=== PATIENT | female | born 1950 | race Caucasian/White ===

== ENCOUNTER 2016-03-11 08:01 | Inpatient (IN) | payer OTHER ==
[2016-03-11] MEDS ORDERED: BABY ASPIRIN 81 MG CHEW PO ONE (08:04)
[2016-03-11] MEDS ORDERED: MORPHINE SULFATE 4 MG INJ IV ONE (08:04)
[2016-03-11] MEDS ORDERED: DUONEB 0.5-3 MG/3 ml Neb IH ONE ×2 (08:07)
[2016-03-11] MEDS ORDERED: Lasix 40 MG/4 ML IV ONE (08:13)
--- NOTE | 2016-03-11 08:13 | ERPHSYRPT ---
- History of Present Illness Time Seen by Provider: 03/11/16 08:09 Source: patient Physician History: This is a 65-year-old white female who denies significant past medical history arrives with complaint of bilateral chest pain which she cannot describe shortness of breath symptoms going on since 4 days ago patient arrives speaking with 1 or 2 word sentences. Past medical history patient denies Timing/Duration: day(s) (4 days) Severity: moderate Modifying Factors: Improves With: nothing Associated Symptoms: shortness of breath, chest pain (pain bilateral chest radiating down her sides for 4 days), No nausea, No vomiting, No abdominal pain , No heartburn, No diaphoresis, No cough, No chills, No fever, No headaches, No loss of appetite, No malaise, No rash, No syncope, No seizure, No weakness Allergies/Adverse Reactions: No Known Drug Allergies Allergy (Unverified 03/11/16 08:24) Home Medications: Amitriptyline HCl 10 mg [Elavil 10 mg] 10 mg PO TID 03/11/16 [History] - Review of Systems Constitutional: No Fever, No Chills Eyes: No Symptoms Ears, Nose, & Throat: No Symptoms Respiratory: Dyspnea, No Cough, No Cyanosis, No Dyspnea on Exertion (TERRELL), No Stridor, No Wheezing Cardiac: Chest Pain (pain bilateral chest radiating down her sides) Abdominal/Gastrointestinal: No Abdominal Pain, No Nausea, No Vomiting, No Diarrhea Musculoskeletal: No Back Pain, No Neck Pain Skin: No Rash Neurological: No Dizziness, No Focal Weakness, No Sensory Changes Psychological: No Symptoms Endocrine: No Symptoms All Other Systems: Reviewed and Negative - Past Medical History Pertinent Past Medical History: No - Past Surgical History Past Surgical History: No - Nursing Vital Signs Nursing Vital Signs: Initial Vital Signs Temperature 102.8 F Temperature Source Rectal Pulse Rate 120 Respiratory Rate 26 Blood Pressure [] 101/60 Pain Intensity 0 - Physical Exam General Appearance: moderate distress, other (well-developed well-nourished white female alert oriented 3) Eye Exam: PERRL/EOMI, eyes nml inspection Ears, Nose, Throat Exam: normal ENT inspection, TMs normal, pharynx normal, moist mucous membranes Neck Exam: normal inspection, non-tender, supple, full range of motion Respiratory Exam: respiratory distress (moderate respiratory distress), diminished breath sounds, crackles/rales, other (rales bilateral bases), No chest tenderness, No lungs clear Cardiovascular Exam: normal peripheral pulses, tachycardia, capillary refill <2 sec, No murmur, No friction rub, No gallop Gastrointestinal/Abdomen Exam: soft, normal bowel sounds, No tenderness, No mass Back Exam: normal inspection, normal range of motion, No CVA tenderness, No vertebral tenderness Extremity Exam: normal inspection, normal range of motion, pelvis stable Neurologic Exam: alert, oriented x 3, cooperative, normal mood/affect, nml cerebellar function, nml station & gait, sensation nml, No motor deficits Skin Exam: normal color, warm, dry, No rash Lymphatic Exam: No adenopathy SpO2 Interpretation: borderline oxygenation (90% 0n 3 lnp) - Course Nursing assessment & vital signs reviewed: Yes EKG Interpreted by Me: RATE (128 bpm), Sinus Tach, Other (ekg: sinus tacchycardia 128 bpm, axis SI/QIII pattern, q waves inferior leads, no acute st or t wve changes) - Radiology Exams Chest X-ray Interpretation: Discussed w/ radiologist, Other (left base infiltrate/ atelectasis / effusion ) Ordered Tests: Active Orders 24 hr Category Date Time Status Color Buffer STAT Care 03/11/16 08:04 Active EKG-ER Only STAT Care 03/11/16 08:04 Active IV Insertion STAT Care 03/11/16 08:04 Active Oxygen-ED Only NASAL CANNULA 3 lpm Care 03/11/16 08:04 Active Oxygen-ED Only NON-REBREATHER 100% Care 03/11/16 09:07 Active Oxygen-ED Only VENTI-MASK 50% Care 03/11/16 09:06 Active Pulse Oximetry (ED) STAT Care 03/11/16 08:04 Active CHEST 1 VIEW (PORTABLE) Stat Exams 03/11/16 08:05 Completed ARTERIAL BLOOD GASES Urgent Lab 03/11/16 08:07 Completed BLOOD CULTURE Stat Lab 03/11/16 08:40 Received CBC W DIFF Stat Lab 03/11/16 08:04 Completed CMP Stat Lab 03/11/16 08:04 Completed CULTURE,SPUTUM Stat Lab 03/11/16 08:29 Uncollected CULTURE,URINE Stat Lab 03/11/16 08:30 Ordered D-DIMER QUANTITATION Stat Lab 03/11/16 08:04 Completed Lactic Acid Urgent Lab 03/11/16 08:07 Completed Lactic Acid Urgent Lab 03/11/16 09:20 Completed Manual Differential NC Stat Lab 03/11/16 08:04 Completed NT PRO BNP Stat Lab 03/11/16 08:04 Completed PROTIME WITH INR Stat Lab 03/11/16 08:00 Completed PTT Stat Lab 03/11/16 08:00 Completed TROPONIN Q3H Lab 03/11/16 09:01 Completed TROPONIN Q3H Lab 03/11/16 11:15 Ordered TROPONIN Q3H Lab 03/11/16 14:15 Ordered TROPONIN Q3H Lab 03/11/16 17:15 Ordered TROPONIN Q3H Lab 03/11/16 20:15 Ordered UA Stat Lab 03/11/16 08:30 Ordered Respiratory Nebulizer STAT RT 03/11/16 08:07 Completed Transfer Order Routine Transfer 03/11/16 09:54 Ordered Medication Summary Generic Name Dose Route Start Last Admin Trade Name Freq PRN Reason Stop Dose Admin Sodium Chloride 1,000 mls @ 20 mls/hr 03/11/16 08:15 03/11/16 08:29 Sodium Chloride 0.9% 1000 Ml IV 04/10/16 08:14 20 mls/hr .Q24H ARIADNA Administration Discontinued Medications Generic Name Dose Route Start Last Admin Trade Name Freq PRN Reason Stop Dose Admin Acetaminophen 650 mg 03/11/16 08:31 03/11/16 08:46 Tylenol 325 Mg PO 03/11/16 08:32 650 mg STAT ONE Administration Acetaminophen Confirm 03/11/16 08:40 Tylenol 325 Mg Administered 03/11/16 08:41 Dose 650 mg .ROUTE .STK-MED ONE Albuterol/Ipratropium 3 ml 03/11/16 08:07 03/11/16 08:10 Duoneb 0.5-3 Mg/3 Ml Neb IH 03/11/16 08:08 3 ml STAT ONE Administration Albuterol/Ipratropium Confirm 03/11/16 08:07 Duoneb 0.5-3 Mg/3 Ml Neb Administered 03/11/16 08:08 Dose 3 ml IH .STK-MED ONE Aspirin 324 mg 03/11/16 08:04 03/11/16 08:28 Baby Aspirin 81 Mg Chew PO 03/11/16 08:05 324 mg STAT ONE Administration Aspirin Confirm 03/11/16 08:26 Baby Aspirin 81 Mg Chew Administered 03/11/16 08:27 Dose 324 mg .ROUTE .STK-MED ONE Enoxaparin Sodium 60 mg 03/11/16 09:50 03/11/16 10:01 Enoxaparin Sodium SQ 03/11/16 09:51 60 mg STAT ONE Administration Enoxaparin Sodium Confirm 03/11/16 10:00 Enoxaparin Sodium Administered 03/11/16 10:01 Dose 80 mg SQ .STK-MED ONE Furosemide 40 mg 03/11/16 08:13 03/11/16 08:29 Lasix 40 Mg/4 Ml IV 03/11/16 08:14 40 mg STAT ONE Administration Furosemide Confirm 03/11/16 08:27 Lasix 40 Mg/4 Ml Administered 03/11/16 08:28 Dose 40 mg .ROUTE .STK-MED ONE Sodium Chloride Confirm 03/11/16 08:27 Sodium Chloride 0.9% 1000 Ml Administered 03/11/16 08:28 Dose 1,000 mls @ ud .ROUTE .STK-MED ONE Ceftriaxone Sodium/Dextrose 50 mls @ 100 mls/hr 03/11/16 08:32 03/11/16 08:46 Rocephin 1 Gm-D5w 50 Ml Bag IV 03/11/16 09:01 100 mls/hr STAT ONE Administration Ceftriaxone Sodium/Dextrose Confirm 03/11/16 08:40 Rocephin 1 Gm-D5w 50 Ml Bag Administered 03/11/16 08:41 Dose 50 mls @ ud IV .STK-MED ONE Morphine Sulfate 4 mg 03/11/16 08:04 03/11/16 08:29 Morphine Sulfate 4 Mg Inj IV 03/11/16 08:05 4 mg STAT ONE Administration Morphine Sulfate Confirm 03/11/16 08:27 Morphine Sulfate 4 Mg Inj Administered 03/11/16 08:28 Dose 4 mg .ROUTE .STK-MED ONE Lab/Rad Data: Laboratory Result Diagrams 03/11/16 08:04 03/11/16 08:04 Laboratory Results 03/11/16 03/11/16 03/11/16 Range/Units 09:20 09:01 08:07 WBC (4.0-10.5) K/mm3 RBC (4.1-5.4) M/mm3 Hgb (12.0-16.0) gm/dl Hct (35-47) % MCV (78-100) fl MCH (26-32) pg MCHC (32-36) g/dl RDW (11.5-14.0) % Plt Count (150-450) K/mm3 MPV (6-9.5) fl Segmented Neutrophils (36.0-66.0) % Band Neutrophils (0.0-2.0) % Lymphocytes (Manual) (24-44) % Differential Comment Platelet Estimate (NORMAL) INR (0.8-3.0) PTT (25.3-37.0) SECONDS D-Dimer (0.00-0.49) mg/L Puncture Site RIGHT RADIAL pCO2 35 (35-45) mmHg pO2 58 L (75-100) mmHg Base Excess 4.3 H (-2.0-2.0) O2 Saturation 87.4 L (94-100) g/dF ABG pH 7.50 H (7.35-7.45) ABG HCO3 27.3 (22-28) ABG O2 Sat (Measured) 88.1 L (95-100) % Brendan Test YES A-a Gradient 126 a/A Ratio 0.32 Hemoglobin 14.8 Carboxyhemoglobin 0.8 (0.0-6.9) % THgb Methemoglobin 0.0 L (1.4-1.5) % Temperature 37.0 C POC O2 Flow Rate 32 % Sodium (136-145) mEq/L Potassium 4.2 (3.5-5.1) mEq/L Chloride (98-107) mEq/L Carbon Dioxide (21-32) mEq/L Anion Gap (5-15) MEQ/L BUN (9-20) mg/dL Creatinine (0.55-1.30) mg/dl Estimated GFR ML/MIN Glucose (70-110) MG/DL Lactic Acid 2.4 H 2.7 H (0.4-2.0) Calcium (8.5-10.1) mg/dL Total Bilirubin (0.2-1.0) mg/dL AST (15-37) U/L ALT (12-78) U/L Alkaline Phosphatase (46-116) U/L Troponin I < 0.017 (0.000-0.056) ng/ml NT-Pro-B Natriuret Pep (0-125) pg/ml Serum Total Protein (6.4-8.2) gm/dL Albumin (3.4-5.0) g/dL 03/11/16 03/11/16 03/11/16 Range/Units 08:04 08:04 08:04 WBC 22.8 H (4.0-10.5) K/mm3 RBC 5.07 (4.1-5.4) M/mm3 Hgb 14.8 (12.0-16.0) gm/dl Hct 46.6 (35-47) % MCV 91.9 (78-100) fl MCH 29.2 (26-32) pg MCHC 31.8 L (32-36) g/dl RDW 15.8 H (11.5-14.0) % Plt Count 171 (150-450) K/mm3 MPV 11.6 H (6-9.5) fl Segmented Neutrophils 67 H (36.0-66.0) % Band Neutrophils 22 H (0.0-2.0) % Lymphocytes (Manual) 11 L (24-44) % Differential Comment NORMAL Platelet Estimate NORMAL (NORMAL) INR (0.8-3.0) PTT (25.3-37.0) SECONDS D-Dimer 2.416 H* (0.00-0.49) mg/L Puncture Site pCO2 (35-45) mmHg pO2 (75-100) mmHg Base Excess (-2.0-2.0) O2 Saturation (94-100) g/dF ABG pH (7.35-7.45) ABG HCO3 (22-28) ABG O2 Sat (Measured) (95-100) % Brendan Test A-a Gradient a/A Ratio Hemoglobin Carboxyhemoglobin (0.0-6.9) % THgb Methemoglobin (1.4-1.5) % Temperature C POC O2 Flow Rate % Sodium 132 L (136-145) mEq/L Potassium 4.1 (3.5-5.1) mEq/L Chloride 94 L (98-107) mEq/L Carbon Dioxide 28.6 (21-32) mEq/L Anion Gap 13.8 (5-15) MEQ/L BUN 35 H (9-20) mg/dL Creatinine 1.25 (0.55-1.30) mg/dl Estimated GFR 46 ML/MIN Glucose 124 H (70-110) MG/DL Lactic Acid (0.4-2.0) Calcium 8.8 (8.5-10.1) mg/dL Total Bilirubin 0.7 (0.2-1.0) mg/dL AST 11 L (15-37) U/L ALT 10 L (12-78) U/L Alkaline Phosphatase 66 (46-116) U/L Troponin I (0.000-0.056) ng/ml NT-Pro-B Natriuret Pep 3661 H (0-125) pg/ml Serum Total Protein 8.5 H (6.4-8.2) gm/dL Albumin 2.5 L (3.4-5.0) g/dL 03/11/16 Range/Units 08:00 WBC (4.0-10.5) K/mm3 RBC (4.1-5.4) M/mm3 Hgb (12.0-16.0) gm/dl Hct (35-47) % MCV (78-100) fl MCH (26-32) pg MCHC (32-36) g/dl RDW (11.5-14.0) % Plt Count (150-450) K/mm3 MPV (6-9.5) fl Segmented Neutrophils (36.0-66.0) % Band Neutrophils (0.0-2.0) % Lymphocytes (Manual) (24-44) % Differential Comment Platelet Estimate (NORMAL) INR 1.59 (0.8-3.0) PTT 34.7 (25.3-37.0) SECONDS D-Dimer (0.00-0.49) mg/L Puncture Site pCO2 (35-45) mmHg pO2 (75-100) mmHg Base Excess (-2.0-2.0) O2 Saturation (94-100) g/dF ABG pH (7.35-7.45) ABG HCO3 (22-28) ABG O2 Sat (Measured) (95-100) % Brendan Test A-a Gradient a/A Ratio Hemoglobin Carboxyhemoglobin (0.0-6.9) % THgb Methemoglobin (1.4-1.5) % Temperature C POC O2 Flow Rate % Sodium (136-145) mEq/L Potassium (3.5-5.1) mEq/L Chloride (98-107) mEq/L Carbon Dioxide (21-32) mEq/L Anion Gap (5-15) MEQ/L BUN (9-20) mg/dL Creatinine (0.55-1.30) mg/dl Estimated GFR ML/MIN Glucose (70-110) MG/DL Lactic Acid (0.4-2.0) Calcium (8.5-10.1) mg/dL Total Bilirubin (0.2-1.0) mg/dL AST (15-37) U/L ALT (12-78) U/L Alkaline Phosphatase (46-116) U/L Troponin I (0.000-0.056) ng/ml NT-Pro-B Natriuret Pep (0-125) pg/ml Serum Total Protein (6.4-8.2) gm/dL Albumin (3.4-5.0) g/dL - Progress Progress: improved Progress Note: 03/11/16 09:44 This is a 65-year-old white female who arrives tachycardic with bilateral chest pain with shortness of breath symptoms going on for 4 days. Patient with her oxygenation of 89% on room air. Patient with a chest x-ray remarkable for a left sided atelectasis/infiltrate/ effusion. Patient with a BNP of 3661 with rales in the bases. Patient also with a d-dimer of 2.416. Patient's white count is 22.8 hemoglobin 14.8 hematocrit 46.6. Patient's lactic acid was 2.8 on arrival now 2.4. Patient was given Lasix 40 mg IV DuoNeb treatment, aspirin, and oxygen. IV normal saline was started at to keep open rate patient clinically appeared to have congestive heart failure. Blood cultures, urine cultures, sputum were ordered blood cultures and sputum have been obtained. Patient was given Rocephin 1 g IV as well as Tylenol and aspirin patient is feeling better. Case is discussed with Dr. Prakash will continue current rate of IV normal saline secondary to patient's clinical presentation consistent with congestive heart failure. Will continue IV antibiotics. Will continue DuoNeb and oxygen. Will begin Lovenox. Will place patient on ICU Diagnosis pneumonia, congestive heart failure, increased d-dimer - Departure Time of Disposition: 10:15 Departure Disposition: Observation Clinical Impression: SOB (shortness of breath), increased ddimer Pneumonia Qualifiers: Pneumonia type: due to unspecified organism Laterality: left Lung location: lower lobe of lung Qualified Code(s): J18.1 - Lobar pneumonia, unspecified organism CHF (congestive heart failure) Qualifiers: Congestive heart failure type: unspecified congestive heart failure type Congestive heart failure chronicity: unspecified congestive heart failure chronicity Qualified Code(s): I50.9 - Heart failure, unspecified Condition: Fair Critical Care Time: No Instructions: Heart Failure
[2016-03-11] MEDS ORDERED: Sodium Chloride 0.9% 1000 ML 1,000 ML IV SCH (08:15)
[2016-03-11 08:20] LABS: A-aADO2 126; ARTERIAL BLD GAS O2 SATURATION 88.1 % (95-100); ARTERIAL BLOOD GAS BASE EXCESS 4.3 (-2.0-2.0); ARTERIAL BLOOD GAS FIO2 32 %; ARTERIAL BLOOD GAS PO2 58 mmHg (75-100); Lactic Acid 2.7 (0.4-2.0)
[2016-03-11 08:21] LABS: ALLEN TEST OK? YES
[2016-03-11] MEDS ORDERED: BABY ASPIRIN 81 MG CHEW ONE (08:26)
[2016-03-11] MEDS ORDERED: Sodium Chloride 0.9% 1000 ML 1,000 ML ONE (08:27)
[2016-03-11] MEDS ORDERED: MORPHINE SULFATE 4 MG INJ ONE (08:27)
[2016-03-11] MEDS ORDERED: Lasix 40 MG/4 ML ONE (08:27)
[2016-03-11 08:31] LABS: Mean Cell Volume 91.9 fl (78-100); Mean Corpuscular Hemoglobin 29.2 pg (26-32); Mean Platelet Volume 11.6 fl (6-9.5); Platelet Count 171 K/mm3 (150-450); Red Blood Count 5.07 M/mm3 (4.1-5.4); Red Cell Distribution Width 15.8 % (11.5-14.0); White Blood Count 22.8 K/mm3 (4.0-10.5)
[2016-03-11] MEDS ORDERED: TYLENOL 325 MG PO ONE (08:31)
[2016-03-11] MEDS ORDERED: ROCEPHIN 1 Gm-D5w 50 ml Bag** 50 ML IV ONE ×2 (08:32→08:40)
--- NOTE | 2016-03-11 08:38 | XRAY ---
Indication: Cough. Comparison: July 22, 2012 Portable chest slightly degraded by respiration artifact with new left base infiltrate/atelectasis/effusion. Remaining right lung, heart, and bony thorax are unremarkable.
[2016-03-11] MEDS ORDERED: TYLENOL 325 MG ONE (08:40)
[2016-03-11 08:53] LABS: BAND 22 % (0.0-2.0); Total Cells Counted 100
[2016-03-11 08:54] LABS: Platelet Estimate NORMAL (NORMAL)
[2016-03-11 08:59] LABS: ALBUMIN 2.5 g/dL (3.4-5.0); ANION GAP 13.8 MEQ/L (5-15); BILIRUBIN,TOTAL 0.7 mg/dL (0.2-1.0); Carbon Dioxide 28.6 mEq/L (21-32); Potassium 4.1 mEq/L (3.5-5.1); Total Protein 8.5 gm/dL (6.4-8.2)
[2016-03-11 09:44] LABS: INR 1.59 (0.8-3.0); PROTIME 17.6 SECONDS (9.95-12.35); PTT 34.7 SECONDS (25.3-37.0)
[2016-03-11] MEDS ORDERED: ENOXAPARIN SODIUM SQ ONE ×2 (09:50→10:00)
[2016-03-11] MEDS ORDERED: DUONEB 0.5-3 MG/3 ml Neb IH PRN (11:36)
--- NOTE | 2016-03-11 13:08 | XRAY ---
Indication: Short of breath and right chest pain. Multiple contiguous axial images obtained through the chest using 100 cc Isovue 370 contrast and PE protocol. Comparison: None There is suboptimal opacification of the pulmonary arteries for unknown reason. I question nonoccluding pulmonary embolus in the posterior right upper lobe, lateral right middle lobe, and anterior right lower lobe segmental branches. No other filling defect or pulmonary embolus. Heart is not enlarged. Aorta is normal in course and caliber. A few mediastinal calcified nodes. No pathologic mediastinal/hilar lymphadenopathy. Examination of the lung parenchyma demonstrates near complete left lower lobe consolidation with small left effusion. Mild right base dependent atelectasis. Remaining lungs demonstrates moderate emphysema. Right middle lobe calcified granuloma. Bony thorax intact with old right third rib fracture. Limited upper abdomen demonstrates 2.8 cm hepatic cyst. Impression: 1. Suboptimal opacification of the pulmonary arteries. Query right upper, right middle, and right lower lobe nonoccluding segmental pulmonary emboli without distal infarct. 2. Left lower lobe near complete consolidating airspace disease with small effusion. 3. Pulmonary emphysema and evidence for old granulomatous disease. 4. Hepatic cyst. CT DI 16.67
[2016-03-11] MEDS: Vasotec 5 MG PO SCH (13:13)
[2016-03-11] MEDS: Zithromax 500 MG/ 250 ML NaCl Premix 250 ML IV SCH (13:27)
[2016-03-11] MEDS: SODIUM CHLORIDE 0.45% W/ 20 mEq KCL 1,000 ML IV SCH (14:56)
[2016-03-11 15:07] LABS: Bacteria FEW /HPF (NEGATIVE); COMPLETE URINE MICROSCOPIC? YES; Collection Type VOID; Epithelial Cells RARE /HPF (FEW); Ph 5.5 (5-6); WBC 0-2 /HPF (0-5)
[2016-03-11] MEDS ORDERED: Lasix 40 MG PO SCH (17:00)
[2016-03-11] MEDS ORDERED: MORPHINE SULFATE 4 MG INJ IV PRN (17:02)
--- NOTE | 2016-03-11 17:02 | PCM.HP ---
History of Present Illness - Chief Complaint Chief Complaint: LLL Pneumonia; CHF; Elevated D-Dimer History of Present Illness: is a 65 year old female who reports a cough for the last month, recently became productive of yellow sputum. She became acutely short of breath yesterday and spent the day in bed. no history of cad, no blood clots in the past. no known fever at home. no vomiting or diarrhea, no rash. she has pain in the left rib area with cough or deep inspiration - Review of Systems Constitutional: Weakness Respiratory: Cough, Short Of Breath Cardiac: Chest Pain Abdominal/Gastrointestinal: No Abdominal Pain, No Nausea, No Vomiting, No Diarrhea Skin: No Rash All Other Systems: Reviewed and Negative Medications & Allergies Home Medications: Home Medication List Amitriptyline HCl 3 tab PO HS 03/11/16 [History Confirmed 03/11/16] Allergies/Adverse Reactions: Allergies Allergy/AdvReac Type Severity Reaction Status Date / Time No Known Drug Allergies Allergy Unverified 03/11/16 08:24 - Past Medical History Past Medical History: Yes Neurological History: Other ENT History: Cataracts Cardiac History: No Pertinent History Respiratory History: Bronchitis, CHF, COPD, Pneumonia Endocrine Medical History: No Pertinent History Musculoskelatal History: No Pertinent History GI Medical History: Hemorrhoids History: No Pertinent History Pyscho-Social History: No Pertinent History Reproductive Disorders: Breast Cancer Comment: Persistent headaches - Female History Are you now?: No - Past Surgical History Past Surgical History: Yes Neuro Surgical History: No Pertinent History Cardiac History: No Pertinent History Respiratory Surgery: No Pertinent History GI Surgical History: No Pertinent History Genitourinary Surgical Hx: No Pertinent History Musculskeletal Surgical Hx: No Pertinent History Female Surgical History: Tubal Ligation, Mastectomy Other Surgical History: RIGHT mastectomy - Social History Smoking Status: Current every day smoker How long have you smoked: YRS Exposure to second hand smoke: Yes Alcohol: None Drug Use: none - Physical Exam Vital Signs: Vital Signs - 24 hr Temp Pulse Resp BP Pulse Ox 03/11/16 15:44 98.3 F 117 H 26 H 113/79 93 L 03/11/16 13:33 98.1 F 108 H 26 H 93/58 91 L 03/11/16 13:10 98.1 F 108 H 20 102/61 91 L 03/11/16 12:49 106 H 20 94 L 03/11/16 10:09 120 H 26 H 101/60 95 03/11/16 09:22 125 H 20 94/57 94 L 03/11/16 08:50 130 H 44 H 109/66 84 L 03/11/16 08:45 124 H 28 H 83 L 03/11/16 08:29 102.8 F 03/11/16 08:20 98.9 F 131 H 30 H 109/63 91 L 03/11/16 08:16 33 H 83 L Oxygen-Last 24 hours O2 Percentage 3 Liters = 32% O2 Percentage 3 Liters = 32% O2 Percentage 2 Liters = 28% O2 Percentage 5 Liters = 40% O2 Percentage 50% O2 Percentage 3 Liters = 32% O2 Percentage 100% O2 Percentage 3 Liters = 32% O2 Percentage 3 Liters = 32% General Appearance: no apparent distress Neurologic Exam: alert Respiratory Exam: crackles/rales (left lung base) Cardiovascular Exam: regular rate/rhythm, normal heart sounds, normal peripheral pulses, tachycardia Gastrointestinal/Abdomen Exam: soft, normal bowel sounds, No tenderness, No mass Extremity Exam: normal inspection, normal range of motion, pelvis stable Skin Exam: normal color, warm, dry, No rash Assessment/Plan (1) Pulmonary embolism Current Visit: Yes Status: Acute Assessment & Plan: started on lovenox, report is somewhat nonconclusive but history of acute onset of dypsnea and pleuritic pain etc supports enough to treat with lovenox at this time. will likely want to repeat to get a more accurate study once the pneumonia is resolved or improved clinically Code(s): I26.99 - OTHER PULMONARY EMBOLISM WITHOUT ACUTE COR PULMONALE (2) Pneumonia Current Visit: Yes Status: Acute Qualifiers: Pneumonia type: due to unspecified organism Laterality: left Lung location: lower lobe of lung Qualified Code(s): J18.1 - Lobar pneumonia, unspecified organism Assessment & Plan: on rocephin and zithromax, IV fluids Code(s): J18.9 - PNEUMONIA, UNSPECIFIED ORGANISM
[2016-03-11] MEDS ORDERED: Ambien 5 MG Tablet PO PRN (20:37)
[2016-03-11] MEDS: ENOXAPARIN SODIUM SQ SCH (21:24)
[2016-03-12] MEDS: SODIUM CHLORIDE 0.45% W/ 20 mEq KCL 1,000 ML IV SCH ×2 (05:28→21:38)
[2016-03-12 05:34] LABS: Mean Cell Volume 93.6 fl (78-100); Mean Platelet Volume 11.4 fl (6-9.5); Platelet Count 149 K/mm3 (150-450); Red Blood Count 4.08 M/mm3 (4.1-5.4); Red Cell Distribution Width 15.4 % (11.5-14.0); White Blood Count 15.6 K/mm3 (4.0-10.5)
[2016-03-12 05:37] LABS: Mean Corpuscular Hemoglobin 29.6 pg (26-32)
[2016-03-12 06:22] LABS: BAND 9 % (0.0-2.0); Total Cells Counted 100
[2016-03-12 06:24] LABS: ANISOCYTOSIS 1+; Platelet Estimate NORMAL (NORMAL); Poikilocytosis 1+; Polychromasia 1+
--- NOTE | 2016-03-12 08:16 | PCM.NOTE ---
Date and Time: 03/12/16814 Subjective Assessment: Pt's breathing is better than on admission. she is vivian liquids. coughing is productive. Objective Exam General Appearance: no apparent distress Neurologic Exam: alert, oriented x 3, cooperative Skin Exam: normal color, warm, dry Respiratory Exam: diminished breath sounds, rhonchi (scattered throughout), No wheezing Cardiovascular Exam: regular rate/rhythm, normal heart sounds OBJECTIVE DATA Vital Signs: Vital Signs - 24 hr Temp Pulse Resp BP Pulse Ox 03/12/16 04:00 98.5 F 103 H 20 93 L 03/12/16 00:01 112 H 03/12/16 00:00 97.7 F 112 H 20 102/66 94 L 03/11/16 20:00 99.5 F 114 H 22 137/74 98 03/11/16 19:35 115 H 22 93 L 03/11/16 16:00 117 H 25 H 03/11/16 15:44 98.3 F 117 H 26 H 113/79 93 L 03/11/16 13:33 98.1 F 108 H 26 H 93/58 91 L 03/11/16 13:10 98.1 F 108 H 20 102/61 91 L 03/11/16 12:49 106 H 20 94 L 03/11/16 10:09 120 H 26 H 101/60 95 03/11/16 09:22 125 H 20 94/57 94 L 03/11/16 08:50 130 H 44 H 109/66 84 L 03/11/16 08:45 124 H 28 H 83 L 03/11/16 08:29 102.8 F 03/11/16 08:20 98.9 F 131 H 30 H 109/63 91 L 03/11/16 08:16 33 H 83 L Oxygen-Last 24 hours O2 Percentage 3 Liters = 32% O2 Percentage 3 Liters = 32% O2 Percentage 3 Liters = 32% O2 Percentage 3 Liters = 32% O2 Percentage 2 Liters = 28% O2 Percentage 5 Liters = 40% O2 Percentage 50% O2 Percentage 3 Liters = 32% O2 Percentage 100% O2 Percentage 3 Liters = 32% O2 Percentage 3 Liters = 32% Pain Assessment - Last Documented Pain Intensity 0 Pain Scale Used 0-10 Pain Scale Intake and Output: Intake & Output 03/09/16 03/10/16 03/11/16 03/12/16 11:59 11:59 11:59 11:59 Intake Total 2073 Output Total 1550 Balance 523 Weight 66.497 kg Lab Results: Lab Results-Last 24 Hours 03/11/16 03/11/16 03/12/16 Range/Units 17:20 20:16 05:10 WBC (4.0-10.5) K/mm3 RBC (4.1-5.4) M/mm3 Hgb (12.0-16.0) gm/dl Hct (35-47) % MCV (78-100) fl MCH (26-32) pg MCHC (32-36) g/dl RDW (11.5-14.0) % Plt Count (150-450) K/mm3 MPV (6-9.5) fl Segmented Neutrophils (36.0-66.0) % Band Neutrophils (0.0-2.0) % Lymphocytes (Manual) (24-44) % Monocytes (Manual) (0.0-12.0) % Platelet Estimate (NORMAL) Polychromasia Poikilocytosis Anisocytosis Lactic Acid (0.4-2.0) Troponin I < 0.017 < 0.017 (0.000-0.056) ng/ml NT-Pro-B Natriuret Pep 809 H (0-125) pg/ml 03/12/16 03/12/16 Range/Units 05:10 05:13 WBC 15.6 H (4.0-10.5) K/mm3 RBC 4.08 L (4.1-5.4) M/mm3 Hgb 12.1 (12.0-16.0) gm/dl Hct 38.2 (35-47) % MCV 93.6 (78-100) fl MCH 29.6 (26-32) pg MCHC 31.7 L (32-36) g/dl RDW 15.4 H (11.5-14.0) % Plt Count 149 L (150-450) K/mm3 MPV 11.4 H (6-9.5) fl Segmented Neutrophils 86 H (36.0-66.0) % Band Neutrophils 9 H (0.0-2.0) % Lymphocytes (Manual) 2 L (24-44) % Monocytes (Manual) 3 (0.0-12.0) % Platelet Estimate NORMAL (NORMAL) Polychromasia 1+ Poikilocytosis 1+ Anisocytosis 1+ Lactic Acid 0.8 (0.4-2.0) Troponin I (0.000-0.056) ng/ml NT-Pro-B Natriuret Pep (0-125) pg/ml Assessment/Plan (1) Pulmonary embolism Current Visit: Yes Status: Acute Assessment & Plan: On lovenox 60mg SQ BID. Code(s): I26.99 - OTHER PULMONARY EMBOLISM WITHOUT ACUTE COR PULMONALE (2) Pneumonia Current Visit: Yes Status: Acute Qualifiers: Pneumonia type: due to unspecified organism Laterality: left Lung location: lower lobe of lung Qualified Code(s): J18.1 - Lobar pneumonia, unspecified organism Assessment & Plan: Clinically some improvement, continue IV rocephin and zitrhomax. Code(s): J18.9 - PNEUMONIA, UNSPECIFIED ORGANISM
--- NOTE | 2016-03-12 09:04 | XRAY ---
Indication: CHF. Comparison: One day earlier. Portable chest unchanged again with left base infiltrate/atelectasis/effusion and a few scattered calcified granulomas. Remaining lungs and heart unremarkable. No new abnormalities.
[2016-03-12] MEDS: ENOXAPARIN SODIUM SQ SCH ×2 (10:09→21:02)
[2016-03-12] MEDS: ROCEPHIN 1 Gm-D5w 50 ml Bag** 50 ML IV SCH (10:10)
[2016-03-12] MEDS: Vasotec 5 MG PO SCH (10:10)
[2016-03-12] MEDS: Zithromax 500 MG/ 250 ML NaCl Premix 250 ML IV SCH (10:10)
--- NOTE | 2016-03-12 11:51 | ECHO ---
Transthoracic echocardiographic examination and color Doppler was done on 03/11/2016. INDICATION: Shortness of breath, congestive heart failure. IMPRESSION: 1) NO DEFINITE REGIONAL WALL MOTION ABNORMALITY. ESTIMATED GLOBAL LEFT VENTRICULAR EJECTION FRACTION AROUND 50 TO 60%. 2) TRACE MITRAL REGURGITATION. 3) LEFT VENTRICULAR HYPERTROPHY. 4) LEFT VENTRICULAR DIASTOLIC DYSFUNCTION. The left ventricle is visualized but demonstrated adequate contractility. Estimated global left ventricular ejection fraction around 50 to 60%. There is mild left ventricular hypertrophy. The mitral valve is seen and this opens adequately. There is trace mitral regurgitation. Left atrium is normal. The tissue Doppler study over the lateral mitral annulus suggests left ventricular diastolic dysfunction. The aortic valve opens adequately. Right side chambers are within normal. No significant tricuspid regurgitation is seen.
[2016-03-13 06:30] LABS: ALBUMIN 1.8 g/dL (3.4-5.0); ALKALINE PHOSPHATASE 92 U/L (46-116); ANION GAP 10.6 MEQ/L (5-15); BILIRUBIN,TOTAL 0.2 mg/dL (0.2-1.0); BLOOD UREA NITROGEN 26 mg/dL (9-20); CHLORIDE 102 mEq/L (98-107); Carbon Dioxide 26.9 mEq/L (21-32); Glucose 96 MG/DL (70-110); Potassium 3.8 mEq/L (3.5-5.1); SGOT/AST 17 U/L (15-37); SGPT/ALT 14 U/L (12-78); SODIUM 136 mEq/L (136-145); Total Protein 7.1 gm/dL (6.4-8.2)
--- NOTE | 2016-03-13 09:27 | PCM.NOTE ---
Date and Time: 03/13/1625 Subjective Assessment: patient is feeling better, coughing up sputum but less short of breath with exertion and overall feeling better. Objective Exam General Appearance: no apparent distress, alert Respiratory Exam: crackles/rales (left lung base) Cardiovascular Exam: regular rate/rhythm, normal heart sounds Gastrointestinal/Abdomen Exam: soft, No tenderness, No mass Extremity Exam: normal inspection, normal range of motion OBJECTIVE DATA Vital Signs: Vital Signs - 24 hr Temp Pulse Resp BP Pulse Ox 03/13/16 04:00 98.7 F 94 H 20 96/44 96 03/13/16 00:01 91 H 03/13/16 00:00 98.7 F 91 H 19 96/42 95 03/12/16 21:39 94 H 23 95 03/12/16 20:00 98.7 F 94 H 24 105/62 96 03/12/16 16:00 98.1 F 98 H 18 121/67 95 03/12/16 12:00 98.2 F 104 H 18 108/68 93 L Oxygen-Last 24 hours O2 Percentage 6 Liters = 44% O2 Percentage 5 Liters = 40% O2 Percentage 5 Liters = 40% O2 Percentage 5 Liters = 40% O2 Percentage 3 Liters = 32% Pain Assessment - Last Documented Pain Intensity 2 Pain Scale Used 0-10 Pain Scale Intake and Output: Intake & Output 03/10/16 03/11/16 03/12/16 03/13/16 11:59 11:59 11:59 11:59 Intake Total 2073 3287 Output Total 1550 1600 Balance 523 1687 Weight 66.497 kg 68.13 kg Lab Results: Lab Results-Last 24 Hours 03/13/16 Range/Units 05:35 Sodium 136 (136-145) mEq/L Potassium 3.8 (3.5-5.1) mEq/L Chloride 102 (98-107) mEq/L Carbon Dioxide 26.9 (21-32) mEq/L Anion Gap 10.6 (5-15) MEQ/L BUN 26 H (9-20) mg/dL Creatinine 0.86 (0.55-1.30) mg/dl Estimated GFR > 60 ML/MIN Glucose 96 (70-110) MG/DL Calcium 7.8 L (8.5-10.1) mg/dL Total Bilirubin 0.2 (0.2-1.0) mg/dL AST 17 (15-37) U/L ALT 14 (12-78) U/L Alkaline Phosphatase 92 (46-116) U/L Serum Total Protein 7.1 (6.4-8.2) gm/dL Albumin 1.8 L (3.4-5.0) g/dL Assessment/Plan (1) Pulmonary embolism Current Visit: Yes Status: Acute Assessment & Plan: continue lovenox Code(s): I26.99 - OTHER PULMONARY EMBOLISM WITHOUT ACUTE COR PULMONALE (2) Pneumonia Current Visit: Yes Status: Acute Qualifiers: Pneumonia type: due to unspecified organism Laterality: left Lung location: lower lobe of lung Qualified Code(s): J18.1 - Lobar pneumonia, unspecified organism Assessment & Plan: patient is improving, continue current management. of note initially pro bnp elevated and improved in spite of gentle hydration Code(s): J18.9 - PNEUMONIA, UNSPECIFIED ORGANISM
[2016-03-13] MEDS: ENOXAPARIN SODIUM SQ SCH ×2 (10:31→21:57)
[2016-03-13] MEDS: Vasotec 5 MG PO SCH (10:31)
[2016-03-13] MEDS: ROCEPHIN 1 Gm-D5w 50 ml Bag** 50 ML IV SCH (10:32)
[2016-03-13] MEDS: SODIUM CHLORIDE 0.45% W/ 20 mEq KCL 1,000 ML IV SCH (10:35)
[2016-03-13] MEDS: Zithromax 500 MG/ 250 ML NaCl Premix 250 ML IV SCH (10:36)
[2016-03-14 05:56] LABS: Mean Cell Volume 94.9 fl (78-100); Mean Corpuscular Hemoglobin 28.8 pg (26-32); Mean Platelet Volume 10.9 fl (6-9.5); Platelet Count 189 K/mm3 (150-450); Red Blood Count 3.92 M/mm3 (4.1-5.4); Red Cell Distribution Width 15.3 % (11.5-14.0); White Blood Count 7.9 K/mm3 (4.0-10.5)
[2016-03-14 06:34] LABS: ALBUMIN 1.8 g/dL (3.4-5.0); ALKALINE PHOSPHATASE 126 U/L (46-116); ANION GAP 10.8 MEQ/L (5-15); BILIRUBIN,TOTAL 0.4 mg/dL (0.2-1.0); BLOOD UREA NITROGEN 15 mg/dL (9-20); CHLORIDE 104 mEq/L (98-107); Carbon Dioxide 25.4 mEq/L (21-32); Glucose 100 MG/DL (70-110); Potassium 4.1 mEq/L (3.5-5.1); SGOT/AST 30 U/L (15-37); SGPT/ALT 28 U/L (12-78); SODIUM 136 mEq/L (136-145); Total Protein 7.5 gm/dL (6.4-8.2)
[2016-03-14 07:20] LABS: BAND 1 % (0.0-2.0); Total Cells Counted 100
--- NOTE | 2016-03-14 08:08 | PCM.NOTE ---
Date and Time: 03/14/16805 Subjective Assessment: patient reports she is feeling better today, oxygen requirements have decreased. she is still coughing up a fair amount of sputum Objective Exam General Appearance: no apparent distress, alert Respiratory Exam: crackles/rales Cardiovascular Exam: regular rate/rhythm, normal heart sounds Gastrointestinal/Abdomen Exam: soft, No tenderness, No mass Extremity Exam: normal inspection, normal range of motion OBJECTIVE DATA Vital Signs: Vital Signs - 24 hr Temp Pulse Resp BP Pulse Ox 03/14/16 07:59 98.0 F 88 18 135/68 97 03/14/16 07:37 89 22 94 L 03/14/16 06:00 24 03/14/16 04:00 98.8 F 90 24 140/76 93 L 03/14/16 02:00 20 03/14/16 00:00 98.2 F 93 H 20 159/71 92 L 03/13/16 23:59 95 H 92 L 03/13/16 22:00 22 03/13/16 20:00 98.4 F 95 H 22 149/84 91 L 03/13/16 16:00 98.9 F 98 H 20 129/73 93 L 03/13/16 13:50 93 L 03/13/16 13:39 96 H 20 95 03/13/16 11:57 98.5 F 95 H 22 111/57 90 L Oxygen-Last 24 hours O2 Percentage 5 Liters = 40% O2 Percentage 5 Liters = 40% O2 Percentage 3 Liters = 32% O2 Percentage 5 Liters = 40% O2 Percentage 5 Liters = 40% Pain Assessment - Last Documented Pain Intensity 2 Pain Scale Used 0-10 Pain Scale Intake and Output: Intake & Output 03/11/16 03/12/16 03/13/16 03/14/16 11:59 11:59 11:59 11:59 Intake Total 2073 3287 1635 Output Total 1550 2600 Balance 005 296 2402 Weight 66.497 kg 68.13 kg 67.993 kg Lab Results: Lab Results-Last 24 Hours 03/14/16 03/14/16 Range/Units 05:21 05:21 WBC 7.9 (4.0-10.5) K/mm3 RBC 3.92 L (4.1-5.4) M/mm3 Hgb 11.3 L (12.0-16.0) gm/dl Hct 37.2 (35-47) % MCV 94.9 (78-100) fl MCH 28.8 (26-32) pg MCHC 30.4 L (32-36) g/dl RDW 15.3 H (11.5-14.0) % Plt Count 189 (150-450) K/mm3 MPV 10.9 H (6-9.5) fl Segmented Neutrophils 65 (36.0-66.0) % Band Neutrophils 1 (0.0-2.0) % Lymphocytes (Manual) 32 (24-44) % Monocytes (Manual) 2 (0.0-12.0) % Differential Comment NORMAL Sodium 136 (136-145) mEq/L Potassium 4.1 (3.5-5.1) mEq/L Chloride 104 (98-107) mEq/L Carbon Dioxide 25.4 (21-32) mEq/L Anion Gap 10.8 (5-15) MEQ/L BUN 15 (9-20) mg/dL Creatinine 0.71 (0.55-1.30) mg/dl Estimated GFR > 60 ML/MIN Glucose 100 (70-110) MG/DL Calcium 8.1 L (8.5-10.1) mg/dL Total Bilirubin 0.4 (0.2-1.0) mg/dL AST 30 (15-37) U/L ALT 28 (12-78) U/L Alkaline Phosphatase 126 H (46-116) U/L NT-Pro-B Natriuret Pep 731 H (0-125) pg/ml Serum Total Protein 7.5 (6.4-8.2) gm/dL Albumin 1.8 L (3.4-5.0) g/dL Multi-Disciplinary Progress Notes: Multi-Disciplinary Progress Notes 03/14/16 00:06 Respiratory Note by Kameron Pedraza PT SATS WERE 85% ON 3LPM NC. I TURNED O2 UP TO 5LPM AND PT SATS WERE 88%. PLACED AN OXYMASK AT 5LPM AND THAT MAINTAINED A SAT OF 95% SO I WILL LEAVE HER ON THAT FOR THE NIGHT. Initialized on 03/14/16 00:06 - END OF NOTE Assessment/Plan (1) Pulmonary embolism Current Visit: Yes Status: Acute Assessment & Plan: continue lovenox, plan to repeat CTA prior to discharge, secondary to ambiguous read on initial study before committing to anticoagulation Code(s): I26.99 - OTHER PULMONARY EMBOLISM WITHOUT ACUTE COR PULMONALE (2) Pneumonia Current Visit: Yes Status: Acute Qualifiers: Pneumonia type: due to unspecified organism Laterality: left Lung location: lower lobe of lung Qualified Code(s): J18.1 - Lobar pneumonia, unspecified organism Assessment & Plan: continue current management Code(s): J18.9 - PNEUMONIA, UNSPECIFIED ORGANISM
[2016-03-14] MEDS: ROCEPHIN 1 Gm-D5w 50 ml Bag** 50 ML IV SCH (09:22)
[2016-03-14] MEDS: Vasotec 5 MG PO SCH (09:22)
[2016-03-14] MEDS: Zithromax 500 MG/ 250 ML NaCl Premix 250 ML IV SCH (09:22)
[2016-03-14] MEDS: ENOXAPARIN SODIUM SQ SCH ×2 (09:22→21:15)
[2016-03-14] MEDS: SODIUM CHLORIDE 0.45% W/ 20 mEq KCL 1,000 ML IV SCH (09:32)
[2016-03-15] MEDS: SODIUM CHLORIDE 0.45% W/ 20 mEq KCL 1,000 ML IV SCH ×2 (05:07→22:39)
--- NOTE | 2016-03-15 08:15 | PCM.NOTE ---
Date and Time: 03/15/16812 Subjective Assessment: patient is feeling much better today, grew strep pneumoniae on sputum culture. Objective Exam General Appearance: no apparent distress, alert Respiratory Exam: crackles/rales Cardiovascular Exam: regular rate/rhythm, normal heart sounds Gastrointestinal/Abdomen Exam: soft, No tenderness, No mass Extremity Exam: normal inspection, normal range of motion OBJECTIVE DATA Vital Signs: Vital Signs - 24 hr Temp Pulse Resp BP Pulse Ox 03/15/16 07:36 97.8 F 98 H 19 166/80 90 L 03/15/16 05:00 99.1 F 20 166/87 93 L 03/15/16 00:00 99.1 F 113 H 28 H 194/97 91 L 03/14/16 20:09 100 H 18 92 L 03/14/16 20:00 99.5 F 99 H 20 179/83 89 L 03/14/16 18:00 19 03/14/16 16:00 98.4 F 96 H 19 180/81 94 L 03/14/16 15:08 96 03/14/16 14:00 16 03/14/16 12:00 98.3 F 91 H 16 154/78 94 L 03/14/16 10:59 93 L 03/14/16 10:00 22 Oxygen-Last 24 hours O2 Percentage 2 Liters = 28% O2 Percentage 2 Liters = 28% O2 Percentage 2 Liters = 28% O2 Percentage 3 Liters = 32% O2 Percentage 3 Liters = 32% Pain Assessment - Last Documented Pain Intensity 2 Pain Scale Used 0-10 Pain Scale Intake and Output: Intake & Output 03/12/16 03/13/16 03/14/16 03/15/16 11:59 11:59 11:59 11:59 Intake Total 2073 3287 1635 2622 Output Total 1550 2600 1400 Balance 429 502 0788 1222 Weight 66.497 kg 68.13 kg 67.993 kg 67.54 kg Radiology Exams: Radiology Procedures Category Date Time Status CTA CHEST W AND/OR WO [CT] Routine Exams 03/15/16 08:12 Ordered Assessment/Plan (1) Pulmonary embolism Current Visit: Yes Status: Acute Assessment & Plan: repeat cta today since 1st study was suboptimal, discussed with patient the need to repeat so I don't commit her to retirement anticoagulation unnecessarily and she understands. Code(s): I26.99 - OTHER PULMONARY EMBOLISM WITHOUT ACUTE COR PULMONALE (2) Pneumonia Current Visit: Yes Status: Acute Qualifiers: Pneumonia type: due to unspecified organism Laterality: left Lung location: lower lobe of lung Qualified Code(s): J18.1 - Lobar pneumonia, unspecified organism Assessment & Plan: much better, will attempt to wean oxygen. possibly home later today or tomorrow Code(s): J18.9 - PNEUMONIA, UNSPECIFIED ORGANISM
[2016-03-15] MEDS: ENOXAPARIN SODIUM SQ SCH (08:50)
[2016-03-15] MEDS: Vasotec 5 MG PO SCH (08:50)
[2016-03-15] MEDS: ROCEPHIN 1 Gm-D5w 50 ml Bag** 50 ML IV SCH (08:50)
[2016-03-15] MEDS: Zithromax 500 MG/ 250 ML NaCl Premix 250 ML IV SCH (08:50)
--- NOTE | 2016-03-15 12:59 | XRAY ---
Indication: Follow-up pulmonary emboli. Multiple contiguous axial images obtained through the chest using 80 cc Isovue 370 contrast and PE protocol. Comparison: March 11, 2016 There is good opacification of the pulmonary arteries, better than before. Today no filling defect or pulmonary embolus. Heart is not enlarged. Aorta normal in course and caliber. Stable calcified mediastinal nodes. No new pathologic mediastinal/hilar lymphadenopathy. Examination of the lung parenchyma again demonstrates left lower lobe consolidating airspace disease with mild clearing in the superior segment. Increasing mild/moderate left effusion. Stable right lung base dependent atelectasis, pulmonary emphysema, and right middle lobe calcified granuloma. Again right mastectomy. Limited upper abdomen again demonstrates fatty liver and left lobe 2.8 cm hepatic cyst. Impression: 1. Improved opacification of the pulmonary arteries. Negative for pulmonary embolus. 2. Again left lower lobe consolidating airspace disease with mild improvement. Increasing left effusion. 3. No new cardiopulmonary abnormalities. 4. Stable pulmonary emphysema, fatty liver, hepatic cyst, and evidence for old granulomatous disease. CT DI 15.25
[2016-03-16] MEDS: Vasotec 5 MG PO SCH (08:47)
[2016-03-16] MEDS: ROCEPHIN 1 Gm-D5w 50 ml Bag** 50 ML IV SCH (08:47)
[2016-03-16] MEDS: Zithromax 500 MG/ 250 ML NaCl Premix 250 ML IV SCH (10:30)
--- NOTE | 2016-03-16 10:48 | PCM.DS ---
Discharge Summary Date of Admission: 03/11/16 15:00 Admitting Physician: JOVANA MEDINA Consults: Consults on Case 03/11/16 11:36 Nutritional Consult Primary Care Provider: JOVANA MEDINA Allergies Allergies No Known Drug Allergies Allergy (Unverified 03/11/16 08:24) Hospital Summary - Hospital Course Hospital Course: Pt admitted with pneumonia, was thought to possibly have a PE at that time as well. CTA of the chest repeated yesterday showed no PE. Her sputum cultures grew out Streptococcus pneumonia susceptible to rocephin, which she has been receiving IV. Pt was found to have heart failure on admission, she had an echo with EF 50-60% but LVH and diastolic heart failure. She was started on an ACEi and will continue it at home. - Vitals & Intake/Output Vital Signs: Vital Signs Temperature 98.4 F 03/16/16 07:04 Pulse Rate 83 03/16/16 07:47 Respiratory Rate 18 03/16/16 07:47 Blood Pressure 129/70 03/16/16 07:04 O2 Sat by Pulse Oximetry 93 L 03/16/16 07:47 Oxygen-Last Documented O2 Percentage 2 Liters = 28% Intake & Output: Intake & Output 03/13/16 03/14/16 03/15/16 03/16/16 11:59 11:59 11:59 11:59 Intake Total 3287 1635 2842 1520 Output Total 2600 1400 Balance 687 1635 1442 1520 Weight 68.13 kg 67.993 kg 67.54 kg 68.084 kg - Lab Result Diagrams: 03/14/16 05:21 03/14/16 05:21 - Radiology Exams Ordered Rad Exams-Entire Visit: Radiology Procedures Category Date Time Status CHEST WITH CONTRAST [CT] Routine Exams 03/15/16 08:12 Completed - Procedures and Test Procedures and Tests throughout Hospitalization: Therapy Orders & Screens 03/11/16 11:36 Oxygen NASAL CANNULA 40 lpm Comment: ventimask Diagnosis: Shortness of Breath 03/11/16 12:48 Respiratory Nebulizer PRN Comment: Diagnosis: Shortness of Breath Discharge Exam General Appearance: no apparent distress Neurologic Exam: alert, oriented x 3, cooperative Skin Exam: normal color, warm, dry Respiratory Exam: normal breath sounds, lungs clear, other (no O2 on; pt at rest.), No crackles/rales, No rhonchi, No wheezing Cardiovascular Exam: regular rate/rhythm, normal heart sounds Extremity Exam: No pedal edema, No swelling Back Exam: normal inspection Final Diagnosis/Problem List - Final Discharge Diagnosis/Problem (1) Pneumonia Current Visit: Yes Status: Acute Assessment & Plan: Much improved. Strep pneumonia. Home on cefdinir and O2. (2) Diastolic heart failure Current Visit: Yes Status: Acute Assessment & Plan: Home on JU inhibitor, f/u with Dr. Medina in 1 wk. (3) Hypoxemia Current Visit: Yes Status: Acute Assessment & Plan: Will send pt home on O2, needs it at night and if undergoing any activity. f/u with Dr. Medina. - Discharge Disposition: Home, Self-Care Condition: Stable Prescriptions: New Albuterol/Ipratropium 3ml Neb* [DUONEB 0.5-3 MG/3 ml Neb] 3 ml IH QID #30 ampul.neb Cefdinir [Omnicef] 300 mg PO BID #20 capsule Enalapril Maleate 5 mg [Vasotec 5 MG] 2.5 mg PO DAILY #30 tablet Continue Amitriptyline HCl 3 tab PO HS Instructions: Heart Failure Follow up with: JOVANA MEDINA MD [Primary Care Provider] - 03/21/16 10:45 am Forms: Patient Portal Information
[2016-03-16 12:01] VITALS: BP 155/78; PULSE 96; O2SAT 92
== END 2016-03-16 13:50 | disposition home or self-care (01) | DRG 193 ==
LOC: ED 08:01 → ICU 11:27 → OBSVTOIN 15:00 → MED SURG 03-13 11:16
PROVIDERS: ADMIT Family Medicine; ATTEND Family Medicine
DX: J18.9 Pneumonia, unspecified organism (principal); I50.31 Acute diastolic (congestive) heart failure; I26.99 Other pulmonary embolism without acute cor pulmonale; R09.02 Hypoxemia; J44.9 Chronic obstructive pulmonary disease, unspecified; Z85.3 Personal history of malignant neoplasm of breast; Z72.0 Tobacco use
CPT/HCPCS: 36000; 36415; 36600; 71010; 71260; 80053; 81000; 82375; 82803; 83605; 83880; 84484; 85025; 85379; 85610; 85730; 87040; 87070; 87077; 87086; 93005; 93041; 93268; 93306; 94640; 94760; 94761; 96372; 96374; 96375; 99285; G0378; J0456; J0696; J1650; J1940; J2270

== ENCOUNTER 2018-06-01 06:01 | Day surgery (SDC) | payer MEDICARE, OTHER ==
[2018-06-01] MEDS ORDERED: DIPRIVAN 200 MG/20 ML IV ONE (06:02)
[2018-06-01] MEDS: Lactated Ringers 1,000 ML IV SCH (06:29)
[2018-06-01 09:00] VITALS: BP 116/85; PULSE 89
[2018-06-01 09:01] VITALS: O2SAT 91
--- NOTE | 2018-06-01 11:04 | OP ---
SURGERY DATE/TIME: 06/01/2018 0746 PREOPERATIVE DIAGNOSIS: Rectal bleeding. POSTOPERATIVE DIAGNOSES: 1) External hemorrhoids. 2) Active descending colitis and small polyp in the rectosigmoid colon. PROCEDURE: Colonoscopy with cold forceps biopsy. SURGEON: Dr. Garcia. ANESTHESIA: MAC. Medications given by anesthesia department. HISTORY: The patient is a 67 year-old white female who reports she woke with cramping in the middle of the night and having rectal bleeding after the third episode of bowel movements. She reports it has happened a couple of times that evening but has had none since that time. The patient has never had a colonoscopic evaluation previously. She was felt the need to have evaluation. She was appraised of the risks of the procedure including the risk of perforation, phlebitis, untoward reaction to medication, bleeding and missed lesions. The patient verbalized her understanding and desired to have the procedure performed. DESCRIPTION OF PROCEDURE: The patient was given the medications by the anesthesia department. She had continuous pulse oximetry, ECG monitoring, intermittent blood pressure monitoring and tidal CO2 monitoring during the examination. She was placed in the left lateral decubitus position. A digital rectal examination was performed and revealed external hemorrhoids with no active bleeding. Normal anal sphincter tone and no masses otherwise. The flexible Olympus pediatric colonoscope was used to intubate the rectum. A view of the colon was developed sequentially to the cecum. Upon insertion and withdrawal, including a retroflex view in the rectum was noted a segmental area in the descending colon approximately 20 cm in length with one small erosion without active bleeding and moderate to severe erythema was noted throughout this portion of the colon. There was also noted a small polyp in the rectosigmoid area and this was biopsied using cold biopsy technique as well. Upon insertion and withdrawal including retroflex view in the rectum no other mucosa being encountered the scope is removed from the patient who tolerated the procedure well. The patient was sent back to the recovery room in good condition. The prep was noted to be poor.
== END 2018-06-01 09:15 | disposition home or self-care (01) ==
LOC: SDC 06:01
PROVIDERS: ATTEND Family Medicine
DX: K52.9 Noninfective gastroenteritis and colitis, unspecified (principal); K64.4 Residual hemorrhoidal skin tags; K63.5 Polyp of colon; D12.7 Benign neoplasm of rectosigmoid junction
CPT/HCPCS: 88305; J2704

== ENCOUNTER 2019-01-02 17:09 | Emergency (ER) | payer MEDICARE, OTHER ==
[2019-01-02] MEDS ORDERED: DUONEB 0.5-3 MG/3 ml Neb IH ONE ×2 (17:21)
[2019-01-02] MEDS ORDERED: Sodium Chloride 0.9% 1000 ML 1,000 ML IV SCH (17:30)
[2019-01-02 17:43] LABS: Hematocrit 36.8 % (35-47); Hemoglobin 11.3 gm/dl (12.0-16.0); Mean Cell Volume 96.3 fl (78-100); Mean Corpuscular Hgb Concent. 30.7 g/dl (32-36); Mean Platelet Volume 9.9 fl (6-9.5); Platelet Count 308 K/mm3 (150-450); Red Blood Count 3.82 M/mm3 (4.1-5.4); Red Cell Distribution Width 16.7 % (11.5-14.0); White Blood Count 6.4 K/mm3 (4.0-10.5)
[2019-01-02 17:47] LABS: INR 1.1 (0.8-3.0); PROTIME 12.5 SECONDS (9.95-12.35)
[2019-01-02 17:49] LABS: PTT 32.1 SECONDS (25.3-37.0)
[2019-01-02] MEDS ORDERED: Sodium Chloride 0.9% 1000 ML 1,000 ML ONE (17:53)
[2019-01-02 18:03] LABS: ALBUMIN 3.7 g/dL (3.5-5.0); ALKALINE PHOSPHATASE 116 U/L (38-126); ANION GAP 11.2 MEQ/L (5-15); BLOOD UREA NITROGEN 21 mg/dL (7-17); CHLORIDE 101 mmol/L (98-107); Carbon Dioxide 31 mmol/L (22-30); Creatinine 1 0.97 mg/dL (0.52-1.04); Glucose 131 mg/dL (74-106); MAGNESIUM 1.8 mg/dL (1.6-2.3); NT PRO BNP 246 pg/mL (0-900); Potassium 4.3 mmol/L (3.5-5.1); SGOT/AST 16 U/L (14-36); SGPT/ALT 14 U/L (0-35); SODIUM 139 mmol/L (137-145)
[2019-01-02 18:06] LABS: TROPONIN < 0.012 ng/mL (0.000-0.034)
[2019-01-02 18:09] LABS: Mean Corpuscular Hemoglobin 29.5 pg (26-32)
[2019-01-02 18:16] LABS: INFLUENZA A NEGATIVE (NEGATIVE); INFLUENZA B NEGATIVE (NEGATIVE); RESPIRATORY SYNCTIAL VIRUS NEGATIVE (Negative)
[2019-01-02 18:52] LABS: BAND 3 % (0.0-2.0); Basophil 1 % (0.0-1.0); Eosinophil 3 % (0.00-3.0); Lymphocytes 17 % (24-44); Monocyte 6 % (0.0-12.0); Neutrophils 70 % (36.0-66.0); Total Cells Counted 100
[2019-01-02 18:53] LABS: Platelet Estimate NORMAL (NORMAL); Toxic Granulation 1+
[2019-01-02] MEDS ORDERED: Lasix 40 MG/4 ML IV ONE (20:33)
[2019-01-02] MEDS ORDERED: Lasix 40 MG/4 ML ONE (20:37)
--- NOTE | 2019-01-02 20:39 | ERPHSYRPT ---
- History of Present Illness Time Seen by Provider: 01/02/19 20:10 Source: patient Exam Limitations: no limitations Patient Subjective Stated Complaint: Pt states that for the past couple of days she has been short of breath and unable to walk very far without getting out of breath Triage Nursing Assessment: Pt brought to the ER via a wheelchair, oxygen 79 on 2L, upped oxygen to 4L and is now 95, no edema, distended abdomen which patient states is normal, lungs diminished, denies cough, tachycardic, denies pain Physician History: patient is a 68-year-old white female with long-standing pulmonary disease and a history of previous right pleural effusion who presents with increasing shortness of breath and oxygen requirement. On 2 L at home her oxygen saturations were in the high 70s low 80s. She was extremely dyspneic with any activity. On arrival the ER she was placed on 4 L and her O2 sats went to the 90s. She has had several episodes of bright pneumonia as well she does cough up some what she describes as a good sputum. She is followed by Dr. garcia. Timing/Duration: yesterday Activities at Onset: activity Severity of Dyspnea-Max: moderate Severity of Dyspnea-Current: moderate Possible Cause: frequent episodes Modifying Factors: Improves With: activity International travel in last 2 weeks: No Allergies/Adverse Reactions: No Known Drug Allergies Allergy (Verified 01/02/19 17:42) Home Medications: Amitriptyline HCl 3 tab PO HS 03/11/16 [History] Albuterol/Ipratropium 3ml Neb* [DUONEB 0.5-3 MG/3 ml Neb] 1 neb PO UD PRN [History] Fluticasone/Umeclidin/Vilanter [Trelegy Ellipta 100-62.5-25] 1 puff PO DAILY [History] Metoprolol Tartrate 50 mg [Lopressor 50 MG] 50 mg PO BID 01/02/19 [History ] Hx Tetanus, Diphtheria Vaccination/Date Given: No Hx Influenza Vaccination/Date Given: Yes Hx Pneumococcal Vaccination/Date Given: No - Review of Systems Constitutional: No Fever, No Chills Eyes: No Symptoms Ears, Nose, & Throat: No Symptoms Respiratory: Cough, Dyspnea, Dyspnea on Exertion (TERRELL), Wheezing Cardiac: No Chest Pain, No Edema, No Syncope Abdominal/Gastrointestinal: No Abdominal Pain, No Nausea, No Vomiting, No Diarrhea Genitourinary Symptoms: No Dysuria Musculoskeletal: No Back Pain, No Neck Pain Skin: No Rash Neurological: No Dizziness, No Focal Weakness, No Sensory Changes Psychological: No Symptoms Endocrine: No Symptoms All Other Systems: Reviewed and Negative - Past Medical History Pertinent Past Medical History: Yes Neurological History: Other ENT History: Cataracts Cardiac History: No Pertinent History Respiratory History: Bronchitis, COPD, Pneumonia, Other Endocrine Medical History: No Pertinent History Musculoskeletal History: No Pertinent History GI Medical History: Hemorrhoids History: No Pertinent History Psycho-Social History: No Pertinent History Female Reproductive Disorders: Breast Cancer Other Medical History: Persistent headaches, 2 L O2 at hs. cellulitis in the R leg - Past Surgical History Past Surgical History: Yes Neuro Surgical History: No Pertinent History Cardiac: No Pertinent History Respiratory: No Pertinent History Gastrointestinal: No Pertinent History Genitourinary: No Pertinent History Musculoskeletal: No Pertinent History Female Surgical History: Tubal Ligation, Mastectomy Other Surgical History: RIGHT mastectomy - Social History Smoking Status: Current every day smoker How long have you smoked: 50 YRS Exposure to second hand smoke: Yes Drug Use: none Patient Lives Alone: No - Nursing Vital Signs Nursing Vital Signs: Initial Vital Signs Pulse Rate 108 H 01/02/19 17:12 Respiratory Rate 24 01/02/19 17:12 Blood Pressure 130/93 01/02/19 17:12 O2 Sat by Pulse Oximetry 84 L 01/02/19 17:12 Pain Scale Pain Intensity 0 - Physical Exam General Appearance: no apparent distress, alert Eye Exam: PERRL/EOMI Neck Exam: normal inspection, supple Respiratory Exam: diminished breath sounds, crackles/rales, rhonchi, wheezing Cardiovascular/Chest Exam: normal heart sounds, regular rate/rhythm Abdominal/Gastrointestinal Exam: soft, No tenderness, No distention, No mass Extremity Exam: non-tender, normal range of motion, normal inspection, no calf tenderness, no pedal edema Peripheral Pulses Exam: carotid (R): 2+, carotid (L): 2+ Neurologic Exam: alert, oriented x 3, cooperative, application trainer II-XII nml as tested, sensation nml, No motor deficits Skin Exam: normal color, warm, No dry Lymphatic Exam: No adenopathy SpO2 Interpretation: normal SpO2: 91 O2 Delivery: Nasal Cannula - Course EKG Interpreted by Me: RATE (99), NORMAL AXIS, NORMAL INTERVALS, Non-specific ST Changes - CT Exams Chest CT Interpretation: Tele-radiologist Report, Other (large left pleural effusion severe center lobar emphysematous disease within indeterminate 1 cm soft tissue mass left upper lobe requiring further evaluation) Ordered Tests: Active Orders 24 hr Category Date Time Status Oxygen-ED Only Nasal Cannula 4 lpm Care 01/02/19 17:21 Active CHEST 1 VIEW (PORTABLE) Stat Exams 01/02/19 17:22 Taken CHEST WITH CONTRAST [CT] Stat Exams 01/02/19 18:40 Taken BLOOD CULTURE Stat Lab 01/02/19 17:35 Received CBC W DIFF Stat Lab 01/02/19 17:35 Completed CMP Stat Lab 01/02/19 17:35 Completed D-DIMER QUANTITATION Stat Lab 01/02/19 17:35 Completed Lactic Acid Stat Lab 01/02/19 17:36 Completed MAGNESIUM Stat Lab 01/02/19 17:35 Completed Manual Differential NC Stat Lab 01/02/19 17:35 Completed NT PRO BNP Stat Lab 01/02/19 17:35 Completed PROTIME WITH INR Stat Lab 01/02/19 17:35 Completed PTT Stat Lab 01/02/19 17:35 Completed TROPONIN Stat Lab 01/02/19 17:35 Completed Peak Expiratory Flow Rate ONCE RT 01/02/19 17:32 Active Respiratory Therapy Assessment DAILY RT 01/02/19 17:30 Active Medication Summary Generic Name Dose Route Start Last Admin Trade Name Freq PRN Reason Stop Dose Admin Sodium Chloride 1,000 mls @ 50 mls/hr 01/02/19 17:30 01/02/19 17:56 Sodium Chloride 0.9% 1000 Ml IV 02/01/19 17:29 50 mls/hr .Q20H ARIADNA Administration Discontinued Medications Generic Name Dose Route Start Last Admin Trade Name Freq PRN Reason Stop Dose Admin Albuterol/Ipratropium Confirm 01/02/19 17:21 Duoneb 0.5-3 Mg/3 Ml Neb Administered 01/02/19 17:22 Dose 3 ml IH .STK-MED ONE Albuterol/Ipratropium 3 ml 01/02/19 17:21 01/02/19 17:30 Duoneb 0.5-3 Mg/3 Ml Neb IH 01/02/19 17:22 3 ml STAT ONE Administration Lab/Rad Data: Laboratory Result Diagrams 01/02/19 17:35 01/02/19 17:35 Laboratory Results 01/02/19 01/02/19 01/02/19 Range/Units 17:36 17:35 17:35 WBC (4.0-10.5) K/mm3 RBC (4.1-5.4) M/mm3 Hgb (12.0-16.0) gm/dl Hct (35-47) % MCV (78-100) fl MCH (26-32) pg MCHC (32-36) g/dl RDW (11.5-14.0) % Plt Count (150-450) K/mm3 MPV (6-9.5) fl Segmented Neutrophils (36.0-66.0) % Band Neutrophils (0.0-2.0) % Lymphocytes (Manual) (24-44) % Monocytes (Manual) (0.0-12.0) % Eosinophils (Manual) (0.00-3.0) % Basophils (Manual) (0.0-1.0) % Toxic Granulation Platelet Estimate (NORMAL) RBC Morphology PT 12.5 H (9.95-12.35) SECONDS INR 1.10 (0.8-3.0) APTT 32.1 (25.3-37.0) SECONDS D-Dimer 2794 H* (215-500) ng/mL Sodium (137-145) mmol/L Potassium (3.5-5.1) mmol/L Chloride (98-107) mmol/L Carbon Dioxide (22-30) mmol/L Anion Gap (5-15) MEQ/L BUN (7-17) mg/dL Creatinine (0.52-1.04) mg/dL Estimated GFR ML/MIN Glucose (74-106) mg/dL Lactic Acid 1.4 (0.4-2.0) Calcium (8.4-10.2) mg/dL Magnesium (1.6-2.3) mg/dL Total Bilirubin (0.2-1.3) mg/dL AST (14-36) U/L ALT (0-35) U/L Alkaline Phosphatase (38-126) U/L Troponin I (0.000-0.034) ng/mL NT-Pro-B Natriuret Pep (0-900) pg/mL Serum Total Protein (6.3-8.2) g/dL Albumin (3.5-5.0) g/dL Influenza Type A Ag NEGATIVE (NEGATIVE) Influenza Type B Ag NEGATIVE (NEGATIVE) RSV (PCR) NEGATIVE (Negative) 01/02/19 01/02/19 Range/Units 17:35 17:35 WBC 6.4 (4.0-10.5) K/mm3 RBC 3.82 L (4.1-5.4) M/mm3 Hgb 11.3 L (12.0-16.0) gm/dl Hct 36.8 (35-47) % MCV 96.3 (78-100) fl MCH 29.5 (26-32) pg MCHC 30.7 L (32-36) g/dl RDW 16.7 H (11.5-14.0) % Plt Count 308 (150-450) K/mm3 MPV 9.9 H (6-9.5) fl Segmented Neutrophils 70 H (36.0-66.0) % Band Neutrophils 3 H (0.0-2.0) % Lymphocytes (Manual) 17 L (24-44) % Monocytes (Manual) 6 (0.0-12.0) % Eosinophils (Manual) 3 (0.00-3.0) % Basophils (Manual) 1 (0.0-1.0) % Toxic Granulation 1+ Platelet Estimate NORMAL (NORMAL) RBC Morphology NORMAL PT (9.95-12.35) SECONDS INR (0.8-3.0) APTT (25.3-37.0) SECONDS D-Dimer (215-500) ng/mL Sodium 139 (137-145) mmol/L Potassium 4.3 (3.5-5.1) mmol/L Chloride 101 (98-107) mmol/L Carbon Dioxide 31 H (22-30) mmol/L Anion Gap 11.2 (5-15) MEQ/L BUN 21 H (7-17) mg/dL Creatinine 0.97 (0.52-1.04) mg/dL Estimated GFR > 60.0 ML/MIN Glucose 131 H (74-106) mg/dL Lactic Acid (0.4-2.0) Calcium 9.0 (8.4-10.2) mg/dL Magnesium 1.8 (1.6-2.3) mg/dL Total Bilirubin 0.30 (0.2-1.3) mg/dL AST 16 (14-36) U/L ALT 14 (0-35) U/L Alkaline Phosphatase 116 (38-126) U/L Troponin I < 0.012 (0.000-0.034) ng/mL NT-Pro-B Natriuret Pep 246 (0-900) pg/mL Serum Total Protein 9.0 H (6.3-8.2) g/dL Albumin 3.7 (3.5-5.0) g/dL Influenza Type A Ag (NEGATIVE) Influenza Type B Ag (NEGATIVE) RSV (PCR) (Negative) - Progress Progress: improved Air Movement: good Blood Culture(s) Obtained: No Antibiotics given: No - Departure Departure Disposition: Home Clinical Impression: Pleural effusion, SOB (shortness of breath) Condition: Fair Critical Care Time: No Referrals: JOVANA MEDINA MD [Primary Care Provider] - Instructions: Pleural Effusion (DC) Plan of Treatment: Patient is quite anxious to avoid a chest tube if at all possible. We discuss this with her we will try diuretics to see if that can be reduced somewhat. She will follow with Dr. reich the first of the week. Prescriptions: Furosemide 20 mg [Lasix 20 mg] 40 mg PO DAILY #10 tablet
[2019-01-02 20:53] VITALS: BP 129/87; PULSE 82; O2SAT 95
--- NOTE | 2019-01-02 23:39 | XRAY ---
Indication: Short of breath with activity. Comparison: December 24, 2018. Portable chest unchanged again demonstrating bilateral mid to lower lung interstitial alveolar opacities with small effusions. Heart is not enlarged. No new cardiopulmonary abnormalities.
--- NOTE | 2019-01-02 23:44 | XRAY ---
Indication: Short of breath. Elevated d-dimer. History of breast cancer and COPD. Multiple contiguous axial images obtained through the chest using 80 cc SUV 370 contrast and PE protocol. Comparison: March 15, 2016. There is good opacification of the pulmonary arteries to include the lobar and segmental branches. No filling defect or pulmonary embolus. Heart is not enlarged. Aorta is minimally appears chronic without aneurysm/dissection. New 3.4 x 2.0 cm right suprahilar adenopathy and stable tiny subcarinal calcified node. Thyroid gland remains heterogeneous. Examination of the lung parenchyma again demonstrates pulmonary emphysema, right middle lobe calcified granuloma, and moderate left effusion. Worsening scattered fibrosis/scarring. Right base also demonstrates new patchy airspace opacities, consolidations, and subsegmental atelectasis. Left lung base demonstrates mild compressive atelectasis. Bony thorax intact again with right mastectomy. Limited upper abdomen demonstrates stable fatty liver and 3 cm left lobe hepatic cyst. New tiny perihepatic and perisplenic fluid. Impression: 1. Again negative pulmonary embolus. 2. Worsening right lung pleural parenchymal fibrosis/scarring. 3. New right base patchy airspace opacities, consolidations, and subsegmental atelectasis. Also new right suprahilar adenopathy. 4. New tiny perihepatic and perisplenic fluid. 5. Stable pulmonary emphysema, heterogeneous thyroid, right mastectomy, fatty liver, and hepatic cyst. Comment: Preliminary interpretation was made by [facility]. No critical discrepancy. CTDI 13.10
== END 2019-01-02 20:56 | disposition home or self-care (01) ==
LOC: ED 17:09
DX: J90 Pleural effusion, not elsewhere classified (principal); R06.02 Shortness of breath; J44.9 Chronic obstructive pulmonary disease, unspecified; Z85.3 Personal history of malignant neoplasm of breast; Z99.81 Dependence on supplemental oxygen
CPT/HCPCS: 36415; 71045; 71260; 80053; 83605; 83735; 83880; 84484; 85025; 85379; 85610; 85730; 87040; 87631; 94150; 94640; 96360; 96361; 96374; 99284; J1940; A9270-GY

== ENCOUNTER 2019-04-29 15:38 | Emergency (ER) | payer MEDICARE, OTHER ==
[2019-04-29] MEDS ORDERED: Magnesium Sulfate 1 GM/2 ML VIAL IV ONE (15:39)
[2019-04-29] MEDS ORDERED: PROVENTIL Solution 2.5 MG/0.5 ML IH ONE (15:42)
[2019-04-29] MEDS ORDERED: Sodium Chloride 3 ML UD NEBULES IH ONE ×2 (15:43→16:10)
[2019-04-29] MEDS ORDERED: DECADRON 10MG INJ. ONE (15:46)
[2019-04-29] MEDS ORDERED: D5w 100ML Mini Bag 100 ML 100 ML IV ONE (15:49)
[2019-04-29 15:51] LABS: Hematocrit 43.1 % (35-47); Hemoglobin 12.4 gm/dl (12.0-16.0); Mean Cell Volume 102.6 fl (78-100); Mean Corpuscular Hemoglobin 29.5 pg (26-32); Mean Corpuscular Hgb Concent. 28.8 g/dl (32-36); Mean Platelet Volume 10.7 fl (7.5-11.0); Platelet Count 201 K/mm3 (150-450); Red Cell Distribution Width 16.6 % (11.5-14.0); White Blood Count 11.7 K/mm3 (4.0-10.5)
[2019-04-29] MEDS ORDERED: ROCEPHIN 2 Gm-D5w 50ML BAG** 2 G/50 ML IVPB IV STA (15:54)
[2019-04-29 15:56] LABS: INR 1.03 (0.8-3.0); PROTIME 11.6 SECONDS (9.95-12.35)
[2019-04-29] MEDS ORDERED: DECADRON 10MG INJ. IV ONE (15:58)
[2019-04-29] MEDS ORDERED: Propofol 1000 mg/100 ml Bottle 100 ML IV PRN (15:58)
[2019-04-29] MEDS ORDERED: ROCEPHIN 2 Gm-D5w 50ML BAG** 2 G/50 ML IVPB IV ONE (15:59)
[2019-04-29] MEDS ORDERED: Magnesium 1 Gm / 100 Ml D5W*** 100 ML IV SCH (16:00)
[2019-04-29 16:06] LABS: SGPT/ALT 21 U/L (0-35)
[2019-04-29] MEDS ORDERED: LEVOPHED 4 MG/4 ML 4,000 MCG in Dextrose 5%/Water IV Soln. 500 ML 500 ML IV PRN (16:09)
[2019-04-29 16:11] LABS: ALBUMIN 3.8 g/dL (3.5-5.0); ALKALINE PHOSPHATASE 87 U/L (38-126); ANION GAP 20.8 MEQ/L (5-15); BLOOD UREA NITROGEN 25 mg/dL (7-17); CHLORIDE 97 mmol/L (98-107); Calcium 9.2 mg/dL (8.4-10.2); Carbon Dioxide 26 mmol/L (22-30); Creatinine 1 0.91 mg/dL (0.52-1.04); Glucose 359 mg/dL (74-106); Potassium 3.9 mmol/L (3.5-5.1); SGOT/AST 23 U/L (14-36); SODIUM 139 mmol/L (137-145); Total Protein 7.9 g/dL (6.3-8.2)
[2019-04-29 16:12] LABS: TROPONIN < 0.012 ng/mL (0.000-0.034)
[2019-04-29] MEDS ORDERED: PROVENTIL Solution 2.5 MG/0.5 ML IH SCH (16:15)
[2019-04-29 16:19] LABS: A-aADO2 509; ABG HEMOGLOBIN 12.2; ABG POTASSIUM 5.3 (3.5-5.1); ARTERIAL BLD GAS O2 SATURATION 98.5 % (95-100); ARTERIAL BLOOD GAS FIO2 100 %; ARTERIAL BLOOD GAS PO2 125 mmHg (75-100); CARBOXYHEMOGLOBIN 1.2 % THgb (0.0-6.9); HCO3- 27.6 (22-28); Methhemoglobin 0.3 % (1.4-1.5)
[2019-04-29 16:20] LABS: ARTERIAL BLOOD GAS pH 7.25 (7.35-7.45)
[2019-04-29 16:21] LABS: ABG SITE RIGHT RADIAL; ARTERIAL BLOOD GAS PCO2 63 mmHg (35-45)
[2019-04-29 16:23] LABS: ANISOCYTOSIS 1+; Lymphocytes 50 % (24-44); Monocyte 5 % (0.0-12.0); Neutrophils 45 % (36.0-66.0); Platelet Estimate NORMAL (NORMAL); Total Cells Counted 100; Toxic Granulation 1+
[2019-04-29 16:24] LABS: Hypochromia 1+; Poikilocytosis 1+; Polychromasia RARE
--- NOTE | 2019-04-29 16:28 | XRAY ---
Indication: Tube placement. Extreme respiratory distress. Comparison: January 02, 2019. Portable chest demonstrates new endotracheal tube tip 6 cm above the leona. Chest demonstrate worsening large left effusion/atelectasis occupying 50% of the hemithorax and now obscuring left heart border. Stable right lung interstitial alveolar opacities and small effusion.
[2019-04-29 16:34] VITALS: BP 113/71; PULSE 78
[2019-04-29 16:35] VITALS: O2SAT 100
--- NOTE | 2019-04-29 16:35 | ERPHSYRPT ---
- History of Present Illness Time Seen by Provider: 04/29/19 15:46 Historian: patient, EMS Exam Limitations: clinical condition Patient Subjective Stated Complaint: EMS states "She is a really bad lunger and has had to have a chest tube before. She was in tripod when we got there and initiated RSI and she went into asystole, we did 3 rounds of CPR and after 2 epi , she had rosc. Triage Nursing Assessment: PT presented via medic 1, pt was being ventilated via bvm, io in place, pt sedated, paralyzed and intubated. Physician History: Patient arrives in a bed and sedated. Per EMS, patient was a COPD exacerbation. However, upon arrival she was severely hypoxic. Therefore, she was not improving with initial breathing treatment. And they moved to intubate the patient. During catrina-intubation, after the patient received rocuronium and ketamine, the patient lost pulses. This occurred briefly. They did 2 rounds of CPR and 2 rounds of epinephrine on the patient. After this they did detect a pulse. Patient arrives to the emergency department with sinus tachycardia, a pulse and a blood pressure, intubated, sedated, paralyzed. Aspirin Treatment Today: no aspirin today Allergies/Adverse Reactions: No Known Drug Allergies Allergy (Verified 01/02/19 17:42) Home Medications: Amitriptyline HCl 3 tab PO HS 03/11/16 [History] Albuterol/Ipratropium 3ml Neb* [DUONEB 0.5-3 MG/3 ml Neb] 1 neb PO UD PRN [History] Fluticasone/Umeclidin/Vilanter [Trelegy Ellipta 100-62.5-25] 1 puff PO DAILY [History] Metoprolol Tartrate 50 mg [Lopressor 50 MG] 50 mg PO BID 01/02/19 [History ] Hx Tetanus, Diphtheria Vaccination/Date Given: (unknown) Hx Influenza Vaccination/Date Given: (unknown) Hx Pneumococcal Vaccination/Date Given: (unknown) Immunizations Up to Date: (unknown) - Review of Systems All Other Systems: Unable due to condition - Past Medical History Pertinent Past Medical History: Yes Neurological History: Other ENT History: Cataracts Cardiac History: No Pertinent History Respiratory History: Bronchitis, COPD, Pneumonia, Other Endocrine Medical History: No Pertinent History Musculoskeletal History: No Pertinent History GI Medical History: Hemorrhoids History: No Pertinent History Psycho-Social History: No Pertinent History Female Reproductive Disorders: Breast Cancer Other Medical History: Persistent headaches, 2 L O2 at hs. cellulitis in the R leg - Past Surgical History Past Surgical History: Yes Neuro Surgical History: No Pertinent History Cardiac: No Pertinent History Respiratory: No Pertinent History Gastrointestinal: No Pertinent History Genitourinary: No Pertinent History Musculoskeletal: No Pertinent History Female Surgical History: Tubal Ligation, Mastectomy Other Surgical History: RIGHT mastectomy - Social History Smoking Status: Unknown if ever smoked How long have you smoked: 50 YRS Exposure to second hand smoke: (unknown) Drug Use: none Patient Lives Alone: No - Female History Hx Now: No - Nursing Vital Signs Nursing Vital Signs: Initial Vital Signs Pulse Rate 136 H 04/29/19 15:41 Respiratory Rate 12 04/29/19 15:41 Blood Pressure 110/70 04/29/19 15:41 O2 Sat by Pulse Oximetry 100 04/29/19 15:41 - Physical Exam SpO2 Interpretation: normal SpO2: 100 Comments: 04/29/19 16:31 Physical Exam Vitals signsand nursing notereviewed. Constitutional: Appearance: She is well-developed. HENT: Head: Normocephalicand atraumatic. Eyes: Conjunctiva/sclera: Conjunctivae normal. Neck: Musculoskeletal: Normal range of motion. Trachea: No tracheal deviation. Cardiovascular: Rate and Rhythm: Normal rate. Pulmonary: Effort: Mechanical breathing assisted Abdominal: Palpations: Abdomen is soft. Musculoskeletal: General: No deformity. Skin: General: Skin is warmand dry. Neurological: Mental Status: intubated and sedated Psychiatric: Behavior: intubated and sedated Procedures - Central Line Timeout: Performed Central Line Lumen: triple Lumen Size: 7 Czech Central Line Procedure: chlorahexadine prep, sterile drapes applied, sterile dressing applied Central Line Postion: femoral (R) Anesthesia: 1% Lidocaine cc's of anesthesia: 5 Complications: none Central Line Post Position: sutured Progress: Right femoral vein central line placed without difficulty. Ordered Tests: Active Orders 24 hr Category Date Time Status CO2 Monitoring STAT Care 04/29/19 16:29 Ordered CHEST 1 VIEW (PORTABLE) Routine Exams 04/29/19 15:45 Completed ABG [ARTERIAL BLOOD GASES] Stat Lab 04/29/19 16:03 Completed BNP [NT PRO BNP] Stat Lab 04/29/19 15:55 Completed CBC W DIFF Stat Lab 04/29/19 15:46 Completed CMP Stat Lab 04/29/19 15:46 Completed Lactic Acid Stat Lab 04/29/19 15:46 Completed Manual Differential NC Stat Lab 04/29/19 15:46 Completed PROTIME WITH INR Stat Lab 04/29/19 15:46 Completed TROPONIN Stat Lab 04/29/19 15:46 Completed Ventilator Management STAT RT 04/29/19 16:28 Active Medication Summary Generic Name Dose Route Start Last Admin Trade Name Freq PRN Reason Stop Dose Admin Albuterol Sulfate 10 mg 04/29/19 16:15 04/29/19 15:50 Proventil Solution 2.5 Mg/0.5 Ml IH 05/29/19 16:14 10 mg UD ARIADNA Administration Magnesium Sulfate/Dextrose 100 mls @ 200 mls/hr 04/29/19 16:00 04/29/19 16:03 Magnesium 1 Gm / 100 Ml D5w IV 04/29/19 17:29 200 mls/hr Q1H ARIADNA Administration Propofol 100 mls @ 1.737 mls/hr 04/29/19 15:58 04/29/19 16:03 Propofol 1000 Mg/100 Ml Bottle IV 05/29/19 15:57 5 mcg/kg/min .Q24H PRN 1.737 mls/hr sedation Administration Protocol 5 MCG/KG/MIN Norepinephrine 4,000 mcg/ 504 mls @ 37.8 mls/hr 04/29/19 16:09 04/29/19 16:22 Dextrose IV 05/29/19 16:08 5 mcg/min .[id number] PRN 37.8 mls/hr SEVERE HYPOTENSION Administration Protocol 5 MCG/MIN Discontinued Medications Generic Name Dose Route Start Last Admin Trade Name Freq PRN Reason Stop Dose Admin Albuterol Sulfate Confirm 04/29/19 15:42 Proventil Solution 2.5 Mg/0.5 Ml Administered 04/29/19 15:43 Dose 10 mg IH .STK-MED ONE Dexamethasone Sodium Phosphate Confirm 04/29/19 15:46 Decadron 10mg Inj. Administered 04/29/19 15:47 Dose 10 mg .ROUTE .STK-MED ONE Dexamethasone Sodium Phosphate 10 mg 04/29/19 15:58 04/29/19 15:49 Decadron 10mg Inj. IV 04/29/19 15:59 10 mg STAT ONE Administration Dextrose Confirm 04/29/19 15:49 D5w 100ml Mini Bag 100 Ml Administered 04/29/19 15:50 Dose 100 mls @ ud IV .STK-MED ONE Ceftriaxone Sodium/Dextrose 2 g in 50 mls @ 100 mls/hr 04/29/19 15:54 16:04 Rocephin 2 Gm-D5w 50ml Bag IV 04/29/19 16:23 100 mls/hr STAT STA 100 mls/hr Administration Ceftriaxone Sodium/Dextrose Confirm 04/29/19 15:59 Rocephin 2 Gm-D5w 50ml Bag Administered 04/29/19 16:00 Dose 2 g in 50 mls @ ud IV .STK-MED ONE Sodium Chloride Confirm 04/29/19 15:43 Sodium Chloride 3 Ml Ud Nebules Administered 04/29/19 15:44 Dose 9 ml IH .STK-MED ONE Sodium Chloride 7 ml 04/29/19 16:10 04/29/19 15:50 Sodium Chloride 3 Ml Ud Nebules IH 04/29/19 16:11 7 ml STAT ONE Administration Lab/Rad Data: Laboratory Result Diagrams 04/29/19 15:46 04/29/19 15:46 Laboratory Results 04/29/19 04/29/19 04/29/19 Range/Units 16:03 15:55 15:46 WBC (4.0-10.5) K/mm3 RBC (4.1-5.4) M/mm3 Hgb (12.0-16.0) gm/dl Hct (35-47) % MCV (78-100) fl MCH (26-32) pg MCHC (32-36) g/dl RDW (11.5-14.0) % Plt Count (150-450) K/mm3 MPV (7.5-11.0) fl Segmented Neutrophils (36.0-66.0) % Lymphocytes (Manual) (24-44) % Monocytes (Manual) (0.0-12.0) % Hypochromia Toxic Granulation Platelet Estimate (NORMAL) RBC Morphology Polychromasia Poikilocytosis Anisocytosis PT 11.6 (9.95-12.35) SECONDS INR 1.03 (0.8-3.0) Puncture Site RIGHT RADIAL pCO2 63 H* (35-45) mmHg pO2 125 H* (75-100) mmHg Base Excess -1.0 (-2.0-2.0) O2 Saturation 97.0 (94-100) g/dF ABG pH 7.25 L* (7.35-7.45) ABG HCO3 27.6 (22-28) ABG O2 Sat (Measured) 98.5 (95-100) % Brendan Test NOT APPLICABLE A-a Gradient 509 a/A Ratio 0.20 Hemoglobin 12.2 Carboxyhemoglobin 1.2 (0.0-6.9) % THgb Methemoglobin 0.3 L (1.4-1.5) % Temperature 37.0 C POC O2 Flow Rate 100 % Tidal Volume 550 cc PEEP 5.0 cmH2O Sodium (137-145) mmol/L Potassium 5.3 H (3.5-5.1) mmol/L Chloride (98-107) mmol/L Carbon Dioxide (22-30) mmol/L Anion Gap (5-15) MEQ/L BUN (7-17) mg/dL Creatinine (0.52-1.04) mg/dL Estimated GFR ML/MIN Glucose (74-106) mg/dL Lactic Acid (0.4-2.0) Calcium (8.4-10.2) mg/dL Total Bilirubin (0.2-1.3) mg/dL AST (14-36) U/L ALT (0-35) U/L Alkaline Phosphatase (38-126) U/L Troponin I (0.000-0.034) ng/mL NT-Pro-B Natriuret Pep 278 (0-900) pg/mL Serum Total Protein (6.3-8.2) g/dL Albumin (3.5-5.0) g/dL 04/29/19 04/29/19 04/29/19 Range/Units 15:46 15:46 15:46 WBC 11.7 H (4.0-10.5) K/mm3 RBC 4.20 (4.1-5.4) M/mm3 Hgb 12.4 (12.0-16.0) gm/dl Hct 43.1 (35-47) % MCV 102.6 H (78-100) fl MCH 29.5 (26-32) pg MCHC 28.8 L (32-36) g/dl RDW 16.6 H (11.5-14.0) % Plt Count 201 (150-450) K/mm3 MPV 10.7 (7.5-11.0) fl Segmented Neutrophils 45 (36.0-66.0) % Lymphocytes (Manual) 50 H (24-44) % Monocytes (Manual) 5 (0.0-12.0) % Hypochromia 1+ Toxic Granulation 1+ Platelet Estimate NORMAL (NORMAL) RBC Morphology ABNORMAL Polychromasia RARE Poikilocytosis 1+ Anisocytosis 1+ PT (9.95-12.35) SECONDS INR (0.8-3.0) Puncture Site pCO2 (35-45) mmHg pO2 (75-100) mmHg Base Excess (-2.0-2.0) O2 Saturation (94-100) g/dF ABG pH (7.35-7.45) ABG HCO3 (22-28) ABG O2 Sat (Measured) (95-100) % Brendan Test A-a Gradient a/A Ratio Hemoglobin Carboxyhemoglobin (0.0-6.9) % THgb Methemoglobin (1.4-1.5) % Temperature C POC O2 Flow Rate % Tidal Volume cc PEEP cmH2O Sodium 139 (137-145) mmol/L Potassium 3.9 (3.5-5.1) mmol/L Chloride 97 L (98-107) mmol/L Carbon Dioxide 26 (22-30) mmol/L Anion Gap 20.8 H (5-15) MEQ/L BUN 25 H (7-17) mg/dL Creatinine 0.91 (0.52-1.04) mg/dL Estimated GFR > 60.0 ML/MIN Glucose 359 H (74-106) mg/dL Lactic Acid 7.5 H (0.4-2.0) Calcium 9.2 (8.4-10.2) mg/dL Total Bilirubin 0.40 (0.2-1.3) mg/dL AST 23 (14-36) U/L ALT 21 (0-35) U/L Alkaline Phosphatase 87 (38-126) U/L Troponin I < 0.012 (0.000-0.034) ng/mL NT-Pro-B Natriuret Pep (0-900) pg/mL Serum Total Protein 7.9 (6.3-8.2) g/dL Albumin 3.8 (3.5-5.0) g/dL - Progress Progress: improved Air Movement: good Progress Note: 04/29/19 16:33 ED critical care statement As staff physician, I have provided critical care. Time: 45 Criteria for critical illness: Cardiac arrest, acute respiratory failure, loss of pulses Treatment and management provided include: Coordination of management with ETC care team, consultants, and inpatient care team. [id number] assessment of condition and response to therapy. Review and interpretation of emergent diagnostic testing. Medical chart review and completion. Direction and immediate supervision of the following therapy: Critical care was time spent personally by me on the following activities: blood draw for specimens, development of treatment plan with patient or surrogate, discussions with consultants, discussions with primary provider, interpretation of cardiac output measurements, evaluation of patient&# 39;s response to treatment, examination of patient, obtaining history from patient or surrogate, ordering and performing treatments and interventions, ordering and review of laboratory studies, ordering and review of radiographic studies, pulse oximetry, re-evaluation of patient's condition and review of old charts. This time was independent of all procedures performed. Flaco Abdi I did discuss over the phone with Dr. Perea the ER physician at [facility]. We made the decision to transfer the patient given that we do not have pulmonology, cardiology, full ICU care here at [facility]. We discussed the case in detail. He accepted the patient for transfer. Blood Culture(s) Obtained: No Antibiotics given: Yes - Departure Departure Disposition: Transfer Clinical Impression: Cardiac arrest, Consolidation of left lower lobe of lung, Acute respiratory failure with hypoxia, COPD with exacerbation Condition: Good Critical Care Time: Yes Critical Care Time(excluding separately billable procedures): Critical 30-74 mins Referrals: JOVANA MEDINA MD [Primary Care Provider] - Instructions: Chronic Obstructive Pulmonary Disease
== END 2019-04-29 17:02 | disposition short-term general hospital (02) ==
LOC: ED 15:38
DX: I46.9 Cardiac arrest, cause unspecified (principal); J18.1 Lobar pneumonia, unspecified organism; J96.01 Acute respiratory failure with hypoxia; J44.9 Chronic obstructive pulmonary disease, unspecified; Z85.3 Personal history of malignant neoplasm of breast
CPT/HCPCS: 36415; 36600; 71045; 80053; 82375; 82803; 83605; 83880; 84484; 85025; 85610; 94002; 94640; 94799; 96365; 96367; 96368; 96374; 99285; 99291; J0696; J1100; J2704; J3475